=== PATIENT | female | born 1955 | race Caucasian/White ===

== ENCOUNTER 2019-07-11 09:44 | Emergency (ER) | payer MEDICARE ==
[~2019-07-11] VITALS: Ht 160 cm; Wt 82.2 kg
[~2019-07-11 09:44] MED LIST: ACETAMIN500 M2 PO; ALPRAZOLAM0.5 M1 OR; CELEXA40 MG PO; CIPRO500 MG OR; CITALOPRAM40 MG OR; DARVOCET-N 100100 MG OR; DESYREL50 MG/TAB PO; FLOVENT HFA110 MCG IN; FLOVENT HFA44 MCG IN; HYDROCHLOROTH12.5 MG OR; LIDODERM5 % EX; NAPROSYN500 MG OR; PRILOSEC20 MG/CAP PO; TRAZODONE50 MG OR; ULTRAM50 MG OR; ZOFRAN ODT8 MG SL
[2019-07-11 10:29] LABS: URINE BILIRUBIN - DIPSTICK NEGATIVE (NEGATIVE); URINE BLOOD DIPSTICK TRACE-INTACT (NEGATIVE); URINE COLOR YELLOW; URINE GLUCOSE - DIPSTICK NEGATIVE (NEGATIVE); URINE KETONE NEGATIVE (NEGATIVE); URINE LEUK ESTERASE NEGATIVE (NEGATIVE); URINE NITRITE - DIPSTICK NEGATIVE (Negative); URINE PH 6.5 (4.5-8.0); URINE PROTEIN - DIPSTICK NEGATIVE (NEG-TRACE); URINE SPECIFIC GRAVITY 1.015; URINE UROBILINOGEN - DIPSTICK 0.2 E.U./dL (0.2)
[2019-07-11 10:33] LABS: HEMATOCRIT 38.8 % (37.0-47.0); HEMOGLOBIN 13.3 g/dl (12.0-16.0); IMMATURE GRANULOCYTES 0.3 % (0.0-5.0); MEAN CORPUSCULAR HGB 30.5 pG CALC (26.0-32.0); MEAN CORPUSCULAR HGB CONC 34.3 g/L CALC (32.0-36.0); NEUT# 7.2 thou/uL (2.00-7.15); RED BLOOD COUNT 4.36 mill/uL (4.20-5.60); RED CELL DISTRI WIDTH 12.7 % (11.5-15.5)
[2019-07-11 10:48] LABS: ALBUMIN 4.6 g/dL (3.2-5.0); ALKALINE PHOSPHATASE 105 u/l (38-126); ANION GAP 13 (6-22 (CALC)); BILIRUBIN, TOTAL 0.7 mg/dL (0.0-1.4); BUN 9 mg/dL (8-23); BUN/CREATININE RATIO 14 (12-20 (CALC)); CARBON DIOXIDE 27 mmol/l (22-30); CHLORIDE 101 mmol/l (95-108); CREATININE 0.6 mg/dL (0.5-1.0); GFR > 60 ML/MIN (>=60 (CALC)); GFR FOR AFR.AMER. > 60 ML/MIN (>=60 (CALC)); LIPASE 82 u/l (23-300); POTASSIUM 3.8 mmol/l (3.5-5.1); SGOT/AST 28 u/l (9-36); SODIUM 137 mmol/l (137-146); TOTAL PROTEIN 8.8 g/dL (6.3-8.2)
[2019-07-11] MEDS ORDERED: LISINOPRIL2.5 MG PO (11:00)
[2019-07-11] MEDS ORDERED: ONDANSETRON4 MG PO (11:36)
[2019-07-11] MEDS ORDERED: BACTRIM DS1 TAB PO (11:36)
[2019-07-11] MEDS ORDERED: METRONIDAZOL500 MG PO (11:36)
[2019-07-11 12:11] VITALS: BP 139/98
== END 2019-07-11 12:11 | disposition home or self-care (01) ==
LOC: ED 09:44
PROVIDERS: Family Medicine
DX: K57.32 Diverticulitis of large intestine without perforation or abscess without bleeding (principal); I10 Essential (primary) hypertension; J44.9 Chronic obstructive pulmonary disease, unspecified; Z87.442 Personal history of urinary calculi; Z88.1 Allergy status to other antibiotic agents

== ENCOUNTER 2019-10-02 09:59 | Observation (INO) | payer MEDICARE ==
[~2019-10-02] VITALS: Ht 160 cm; Wt 78.2 kg
[~2019-10-02 09:59] MED LIST changes: +BACTRIM DS1 TAB PO; +LISINOPRIL2.5 MG PO; +METRONIDAZOL500 MG PO; +ONDANSETRON4 MG PO
[2019-10-02] MEDS ORDERED: MUCINEX DM1 TA1 PO (10:25)
[2019-10-02] MEDS ORDERED: DIPHENHYDRAM25 M2 PO (10:28)
[2019-10-02] MEDS ORDERED: ZESTRIL10 M1 PO (10:28)
[2019-10-02 10:53] LABS: HEMATOCRIT 38.8 % (37.0-47.0); HEMOGLOBIN 13.8 g/dl (12.0-16.0); IMMATURE GRANULOCYTES 0.7 % (0.0-5.0); MEAN CORPUSCULAR HGB 30.9 pG CALC (26.0-32.0); MEAN CORPUSCULAR HGB CONC 35.6 g/L CALC (32.0-36.0); NEUT# 4.67 thou/uL (2.00-7.15); RED BLOOD COUNT 4.46 mill/uL (4.20-5.60)
[2019-10-02 10:59] LABS: ANION GAP 13 (6-22 (CALC)); BUN 5 mg/dL (8-23); BUN/CREATININE RATIO 8 (12-20 (CALC)); CARBON DIOXIDE 24 mmol/l (22-30); CHLORIDE 95 mmol/l (95-108); CREATININE 0.6 mg/dL (0.5-1.0); GFR > 60 ML/MIN (>=60 (CALC)); GFR FOR AFR.AMER. > 60 ML/MIN (>=60 (CALC))
[2019-10-02 11:00] LABS: SODIUM 128 mmol/l (137-146)
[2019-10-02 11:04] LABS: GFR > 60 ML/MIN (>=60 (CALC)); GFR FOR AFR.AMER. > 60 ML/MIN (>=60 (CALC))
[2019-10-02 20:21] VITALS: BP 159/89
[2019-10-02 23:49] VITALS: BP 128/82
[2019-10-03 03:50] VITALS: BP 107/68
[2019-10-03 07:40] VITALS: BP 140/83
[2019-10-03 11:05] VITALS: BP 143/82
[2019-10-03 18:45] VITALS: BP 141/73
[2019-10-03 23:59] VITALS: BP 104/55
[2019-10-04 04:11] VITALS: BP 111/70
[2019-10-04 05:26] LABS: HEMATOCRIT 35.2 % (37.0-47.0); HEMOGLOBIN 12.5 g/dl (12.0-16.0); IMMATURE GRANULOCYTES 0.4 % (0.0-5.0); MEAN CELL VOLUME 88.9 fL CALC (80.0-100.0); MEAN CORPUSCULAR HGB 31.6 pG CALC (26.0-32.0); MEAN CORPUSCULAR HGB CONC 35.5 g/L CALC (32.0-36.0); NEUT# 8.58 thou/uL (2.00-7.15); RED BLOOD COUNT 3.96 mill/uL (4.20-5.60); RED CELL DISTRI WIDTH 13.1 % (11.5-15.5)
[2019-10-04 05:58] LABS: BUN 4 mg/dL (8-23); BUN/CREATININE RATIO 11 (12-20 (CALC)); CARBON DIOXIDE 22 mmol/l (22-30); CHLORIDE 99 mmol/l (95-108); CREATININE 0.4 mg/dL (0.5-1.0); GFR > 60 ML/MIN (>=60 (CALC)); GFR FOR AFR.AMER. > 60 ML/MIN (>=60 (CALC)); POTASSIUM 4.7 mmol/l (3.5-5.1); SODIUM 130 mmol/l (137-146)
[2019-10-04 05:59] LABS: ANION GAP 13 (6-22 (CALC)); MAGNESIUM 2.3 mg/dL (1.6-2.3)
[2019-10-04 08:00] VITALS: BP 117/75
[2019-10-04 11:05] VITALS: BP 143/68
[2019-10-04] MEDS ORDERED: ADLT ASA LOW81 MG PO (11:41)
[2019-10-04] MEDS ORDERED: PREDNISONE20 MG PO (11:43)
[2019-10-04] MEDS ORDERED: IPRATROPIU0.5 MG/3 M IN (11:45)
[2019-10-04] MEDS ORDERED: DOXYCYCL HYC100 MG PO (11:45)
== END 2019-10-04 16:00 | disposition home or self-care (01) ==
LOC: ED 09:59 → ED-I 12:56 → ED 16:42 → MS2 16:43
PROVIDERS: Family Medicine; Nurse Practitioner Family; ADMIT Internal Medicine; ATTEND Internal Medicine
DX: H53.8 Other visual disturbances (principal); J20.9 Acute bronchitis, unspecified; J44.0 Chronic obstructive pulmonary disease with (acute) lower respiratory infection; R90.89 Other abnormal findings on diagnostic imaging of central nervous system; I10 Essential (primary) hypertension; E87.1 Hypo-osmolality and hyponatremia; D58.0 Hereditary spherocytosis; M62.89 Other specified disorders of muscle; K21.9 Gastro-esophageal reflux disease without esophagitis
CPT/HCPCS: A9579; G0378; J1650; Q9967

== ENCOUNTER 2019-10-06 | Emergency (ER) | payer MEDICARE ==
[~2019-10-06] MED LIST changes: +ADLT ASA LOW81 MG PO; +DIPHENHYDRAM25 M2 PO; +DOXYCYCL HYC100 MG PO; +IPRATROPIU0.5 MG/3 M IN; +MUCINEX DM1 TA1 PO; +PREDNISONE20 MG PO; +ZESTRIL10 M1 PO
[2019-10-06 21:14] LABS: GFR > 60 ML/MIN (>=60 (CALC)); GFR FOR AFR.AMER. > 60 ML/MIN (>=60 (CALC))
[2019-10-06 21:16] LABS: HEMATOCRIT 37.3 % (37.0-47.0); HEMOGLOBIN 13.6 g/dl (12.0-16.0); IMMATURE GRANULOCYTES 0.9 % (0.0-5.0); MEAN CELL VOLUME 85.7 fL CALC (80.0-100.0); MEAN CORPUSCULAR HGB 31.3 pG CALC (26.0-32.0); MEAN CORPUSCULAR HGB CONC 36.5 g/L CALC (32.0-36.0); NEUT# 8.87 thou/uL (2.00-7.15); RED BLOOD COUNT 4.35 mill/uL (4.20-5.60); RED CELL DISTRI WIDTH 12.8 % (11.5-15.5)
[2019-10-06 21:29] LABS: ACT PARTIAL THROMBO TIME 26.4 SECONDS (20.0-32.5); PROTHROMBIN TIME 10.5 SECONDS (9.0-12.5)
[2019-10-06 21:29] LABS: ALBUMIN 4.6 g/dL (3.2-5.0); ALKALINE PHOSPHATASE 87 u/l (38-126); ANION GAP 16 (6-22 (CALC)); BILIRUBIN, TOTAL 0.7 mg/dL (0.0-1.4); BUN 13 mg/dL (8-23); BUN/CREATININE RATIO 29 (12-20 (CALC)); CARBON DIOXIDE 23 mmol/l (22-30); CHLORIDE 92 mmol/l (95-108); CREATININE 0.5 mg/dL (0.5-1.0); GFR > 60 ML/MIN (>=60 (CALC)); GFR FOR AFR.AMER. > 60 ML/MIN (>=60 (CALC)); POTASSIUM 4.2 mmol/l (3.5-5.1); SGOT/AST 29 u/l (9-36); SODIUM 126 mmol/l (137-146); TOTAL PROTEIN 8.3 g/dL (6.3-8.2)
[2019-10-06 21:40] LABS: MYOGLOBIN 29 ng/mL (0 - 62)
[2019-10-06 23:34] LABS: URINE BILIRUBIN - DIPSTICK NEGATIVE (NEGATIVE); URINE BLOOD DIPSTICK NEGATIVE (NEGATIVE); URINE COLOR YELLOW; URINE GLUCOSE - DIPSTICK NEGATIVE (NEGATIVE); URINE KETONE TRACE mg/dL (NEGATIVE); URINE LEUK ESTERASE NEGATIVE (NEGATIVE); URINE NITRITE - DIPSTICK NEGATIVE (Negative); URINE PROTEIN - DIPSTICK NEGATIVE (NEG-TRACE); URINE UROBILINOGEN - DIPSTICK 0.2 E.U./dL (0.2)
== END 2019-10-07 00:32 | disposition short-term general hospital (02) ==
PROVIDERS: Emergency Medicine
DX: R42 Dizziness and giddiness (principal); R11.2 Nausea with vomiting, unspecified; H53.8 Other visual disturbances; I10 Essential (primary) hypertension

== ENCOUNTER 2020-12-31 | Emergency (ER) | payer MEDICARE ==
[2020-12-31] MEDS ORDERED: EPIPEN 2-P0.3 MG/0.3 IM (21:54)
[2020-12-31] MEDS ORDERED: MEDDOSEPAK PO (21:54)
== END 2020-12-31 22:25 | disposition home or self-care (01) ==
DX: T63.421A Toxic effect of venom of ants, accidental (unintentional), initial encounter (principal); I10 Essential (primary) hypertension

== ENCOUNTER 2022-11-14 06:57 | Emergency (ER) | payer MEDICARE ==
[~2022-11-14] VITALS: Ht 160 cm; Wt 70.0 kg
[2022-11-14] VITALS (15 sets, daily range): BP systolic 70–114; BP diastolic 45–81
[~2022-11-14 06:57] MED LIST changes: +EPIPEN 2-P0.3 MG/0.3 IM; +MEDDOSEPAK PO
[2022-11-14] MEDS ORDERED: PREDNISONE20 MG PO (09:30)
== END 2022-11-14 10:45 | disposition home or self-care (01) ==
LOC: ED 06:57
DX: T63.421A Toxic effect of venom of ants, accidental (unintentional), initial encounter (principal); L50.8 Other urticaria; M79.18 Myalgia, other site; I10 Essential (primary) hypertension